=== PATIENT | female | born 1960 | race Two or more races ===

== ENCOUNTER 2017-06-05 10:15 | Outpatient (CLI) | payer OTHER ==
[~2017-06-05 10:15] MED LIST: ANALPRAM HC 2.530 GM RC; EMBREL; LEVSIN/SL0.125 MG PO; METHOTREXATE; XARELTO20 MG PO; [UNRECOGNIZED DRUG - REMARK]
== END 2017-06-05 10:55 | disposition home or self-care (01) ==
LOC: NUCLEAR 10:15
DX: I25.111 Atherosclerotic heart disease of native coronary artery with angina pectoris with documented spasm (principal)
CPT/HCPCS: 78452; 93017; A9500

== ENCOUNTER 2017-07-08 07:27 | Emergency (ER) | payer OTHER ==
[~2017-07-08] VITALS: Ht 167.6 cm; Wt 90.7 kg
[2017-07-08] MEDS ORDERED: PRISTIQ25 MG (07:59)
[2017-07-08] MEDS ORDERED: PREDNISOLONE SO10 MG (08:01)
[2017-07-08] MEDS ORDERED: JANUVIA100 MG (08:02)
[2017-07-08] MEDS ORDERED: ALTACE5 MG (08:02)
[2017-07-08] MEDS ORDERED: TOPROL XL50 M1 (08:03)
[2017-07-08] MEDS ORDERED: ISOSORBIDE MON120 MG (08:03)
[2017-07-08] MEDS ORDERED: ZEGERID 20 MG1 EACH (08:04)
[2017-07-08] MEDS ORDERED: ZANTAC150 M3 (08:04)
[2017-07-08] MEDS ORDERED: LYRICA150 MG (08:04)
== END 2017-07-08 18:47 | disposition home or self-care (01) ==
LOC: ER 07:27
DX: K58.9 Irritable bowel syndrome, unspecified (principal)

== ENCOUNTER 2017-09-04 12:15 | Outpatient (CLI) | payer OTHER ==
[~2017-09-04 12:15] MED LIST changes: +ALTACE5 MG; +ISOSORBIDE MON120 MG; +JANUVIA100 MG; +LYRICA150 MG; +PREDNISOLONE SO10 MG; +PRISTIQ25 MG; +TOPROL XL50 M1; +ZANTAC150 M3; +ZEGERID 20 MG1 EACH
== END 2017-09-04 12:22 | disposition home or self-care (01) ==
LOC: MAMO-SONO 12:15
DX: Z12.31 Encounter for screening mammogram for malignant neoplasm of breast (principal); Z87.898 Personal history of other specified conditions

== ENCOUNTER 2017-12-30 14:09 | Emergency (ER) | payer OTHER ==
[~2017-12-30] VITALS: Ht 165.1 cm; Wt 117.9 kg
[~2017-12-30 14:09] MED LIST changes: +VOLTAREN100 GM TOP
== END 2017-12-31 18:32 ==
LOC: ER 14:09
DX: S82.492A Other fracture of shaft of left fibula, initial encounter for closed fracture (principal); S06.0X9A Concussion with loss of consciousness of unspecified duration, initial encounter; S40.012A Contusion of left shoulder, initial encounter; S20.212A Contusion of left front wall of thorax, initial encounter; S00.83XA Contusion of other part of head, initial encounter; M06.89 Other specified rheumatoid arthritis, multiple sites; Z86.12 Personal history of poliomyelitis; W10.8XXA Fall (on) (from) other stairs and steps, initial encounter; Y93.89 Activity, other specified; Y92.038 Other place in apartment as the place of occurrence of the external cause; Y99.8 Other external cause status

== ENCOUNTER 2018-02-20 08:19 | Outpatient (CLI) | payer OTHER | END 2018-02-20 15:22 | disposition home or self-care (01) | LOC: TOM 08:19 | DX: S82.291A Other fracture of shaft of right tibia, initial encounter for closed fracture (principal) ==